=== PATIENT | male | born 1950 | race African-American/Black ===

== ENCOUNTER 2018-03-04 14:03 | Day surgery (SDC) | payer OTHER, MEDICAID ==
[2018-03-04] MEDS ORDERED: TETRACAINE 0.5% OPHTH 1 DOSE AFFEYE ONE ×2 (14:16→15:00)
[2018-03-04] MEDS ORDERED: VIGAMOX 0.5% OPHTH 1 DOSE AFFEYE ONE (14:18)
[2018-03-04 15:20] VITALS: BP 182/94
== END 2018-03-04 15:15 | disposition home or self-care (01) ==
LOC: SURG1 14:03
PROVIDERS: ATTEND Ophthalmology
PROC: 08QD3ZZ Repair Left Iris, Percutaneous Approach (ICD-10-PCS; principal; 2018-03-04 23:00)
DX: H40.1123 Primary open-angle glaucoma, left eye, severe stage (principal)
CPT/HCPCS: 65855